=== PATIENT | male | born 1960 | race Caucasian/White ===

== ENCOUNTER → 2016-11-10 | Outpatient (CLI) | payer MEDICAID ==
[~2016-11-10] MED LIST: ASPIRIN 81MG TA81 MG PO; BACLOFEN 10MG T10 MG PO; FENOFIBRATE160 MG PO; JANUVIA100 MG PO; LIPITOR10 MG PO; LORATADINE 10MG10 M1 PO; LORTAB 5/500 501 TAB PO; LORTAB 500 MG-71 TAB PO; METFORMIN HCL1000 MG PO; METFORMIN500 MG PO; METOPROLOL25 MG PO; PERCOGESIC1 TAB PO; PREDNISONE 5MG.5 MG PO; ROBAXIN500 M1 PO; TEMAZEPAM30 MG PO
--- NOTE | 2016-11-11 05:17 | RADIOLOGY REPORT PS360 ---
MRI-L-SPINE W/O, MRI-3D RENDERING/MYELOGRAM HISTORY: Low back pain with bilateral hip and leg pain DEGENERATIVE LUMBAR DISC, LOW BACK PAIN ORDERING PHYSICIAN: Jefferson Polanco MD PATIENT AGE: 56 years COMPARISON: Radiograph of 03/01/2016 TECHNIQUE: Standard multiplanar multiecho sequences are performed without contrast. 3-D MIP and myelographic images are also rendered and reviewed FINDINGS: There is normal alignment. The spinal cord ends at the L1-L2 level. T12-L1: Mild degenerative disc disease. Anterior endplate osteophytes. L1-L2: Mild degenerative disc disease with disc desiccation and small anterior osteophytes. L2-L3: Minimal facet hypertrophic change. L3-L4: Mild facet hypertrophic change with very minimal bulging disc. Small endplate osteophytes. Minimal bilateral foraminal narrowing. L5-S1: Mild facet hypertrophic change. No extruded herniated disc or canal stenosis is evident. IMPRESSION: 1. Mild lumbar spondylosis at multiple levels as detailed at each level above with mild degenerative disc disease, mild facet arthropathy and endplate osteophytes. 2. No canal stenosis or extruded herniated disc. No neural impingement apparent L4-5: Minimal facet hypertrophic change along with minimal bulging disc and mild bilateral foraminal narrowing IMPRESSION:
== END ==
LOC: RAD 12:52
DX: M51.36 Other intervertebral disc degeneration, lumbar region (principal); M54.5 Low back pain; G89.29 Other chronic pain

== ENCOUNTER → 2016-11-25 | Outpatient (CLI) | payer MEDICAID ==
--- NOTE | 2016-11-25 13:42 | RADIOLOGY REPORT PS360 ---
History and Indications: Coronary artery disease, hypertension, diabetes, family history chest pain. Procedure: Patient received a 0.4 mg of Lexiscan, resting heart rate was 79 bpm resting blood pressure 135/85, with Lexiscan maximum heart rate achieved was 107 bpm which is less than 85% of the maximum predicted heart rate and a blood pressure was 131/80. With Lexiscan patient under shortness of breath and headache. Electrocardiogram: Resting electrocardiogram showed sinus rhythm right ventricular conduction delay, with Lexiscan there is less than 1.[address] segment depression noted from the baseline EKG. The EKG portion of the Lexiscan is nondiagnostic. Cardiac stress and resting SPECT images: Cardiac stress and the suspect images were obtained using technetium 99 Myoview 10.2 mCi at rest, and 30.7 mCi at stress, gated SPECT further analysis of segmental wall motion and calculation of the ejection fraction also done. Cardiac stress and the suspect show a mild fixed defect in the apex with normal contractility in the gated SPECT is likely secondary to apical thinning, no reversible ischemia seen. Computer derived ejection fraction is over 65%, right ventricle is normal size and contractility. Conclusion: 1. The EKG portion of the Lexiscan is nondiagnostic. 2. No obvious scintigraphic evidence of reversible ischemia seen. Computer derived ejection fraction is over 65% with no obvious regional wall motion abnormality. Right ventricle is normal size and contractility. 3. Normal Lexiscan Myoview study.
--- NOTE | 2016-11-25 14:38 | RADIOLOGY REPORT PS360 ---
PROCEDURE: 2-D M-mode and color Doppler study INDICATIONS FOR THE TEST: Chest pain+ COPD Heart Murmur Tobacco Smoking Palpitations Fatigue Syncope Edema Hypertension+Diabetes Mellitus+ Rheumatic Fever SOB BONNER Obesity Hyperlipidemia+ Family History HD Additional History PATIENT INFORMATION HEIGHT: 69 WEIGHT:245 GENDER: Male B/P:135/85 2-D/M-MODE INTERPRETATION: 2-D MEASUREMENTS OBSERVED VALUES IN CMS Right Ventricular Dimension (RVDd) 1.8 Interventricular Septum (Thickness)(IVsd) 1.4 Left Ventricular Internal Dimensions(LVIDd) 5.6 Left Ventricular Posterior Wall (Thickness)(LVPWd) 1.0 Aortic Root 3.2 Aortic Cusp Separation 1.9 Left Atrial Dimensions (LAD) 4.7 2D 1. Left atrium is mildly enlarged, left ventricle is normal size, there is mild concentric left ventricular hypertrophy, visually estimated ejection fraction of 55% with no obvious regional wall motion abnormality. 2. The right atrium and right ventricle are normal size and contractility. 3. The aortic valve is minimally thickened and calcified, there is no aortic stenosis. 4. The mitral and tricuspid valve is structurally normal. 5. The pulmonic valve is not well visualized. 6. No significant pericardial effusion noted. DOPPLER INTERROGATION: Doppler interrogation of the aortic mitral and tricuspid valve reveals presence of mild mitral and tricuspid regurgitation, tricuspid regurgitant jet velocity insufficient for calculation of the right ventricular systolic pressure, grade 1 diastolic dysfunction seen without tissue Doppler evidence of raised left atrial pressure. CONCLUSION: 1. Mildly enlarged left atrium, normal left ventricular size, mild concentric left ventricular hypertrophy, visually estimated ejection fraction 55% with no obvious regional wall motion abnormality, grade 1 diastolic dysfunction seen without tissue Doppler evidence of raised left atrial pressure. 2. Mild mitral and tricuspid regurgitation. 3. No significant pericardial effusion noted.
== END ==
LOC: RAD 06:56
DX: I25.10 Atherosclerotic heart disease of native coronary artery without angina pectoris (principal); I20.9 Angina pectoris, unspecified; I10 Essential (primary) hypertension; E11.9 Type 2 diabetes mellitus without complications; E78.5 Hyperlipidemia, unspecified
CPT/HCPCS: A9502; J2785

== ENCOUNTER → 2017-01-04 | Outpatient (CLI) | payer MEDICAID ==
[~2017-01-04] MED LIST changes: +CETIRIZINE HCL10 MG PO; +METOPROLOL SUCC25 M1 PO; +OMEPRAZOLE40 MG PO; +PERCOCET1 TA1 PO; +SUMATRIPTAN SUC25 MG PO; +VENLAFAXINE HCL75 M1 PO; +ZOLPIDEM 10MG T10 MG PO
--- NOTE | 2017-01-05 09:52 | RADIOLOGY REPORT PS360 ---
MRI-T-SPINE W/O HISTORY: MID BACK PAIN ORDERING PHYSICIAN: Pramod Haas MD PATIENT AGE: 56 years COMPARISON: Radiograph of 03/01/2016 TECHNIQUE: Standard multiplanar multiecho sequences are performed without contrast. 3-D MIP and myelographic images are also rendered and reviewed FINDINGS: There is normal alignment. No fracture or dislocation is evident. There is minimal lower thoracic curvature convex right. No disc herniation or canal stenosis. No obvious foraminal stenosis. No extradural defects apparent. Right anterior osteophytes are present from T6 to T12. There is minimal disc desiccation at T6-T7, T7-T8, T9-T10. A small T1 and T2 hyperintense lesion involves the T10 vertebral body consistent with a small hemangioma. IMPRESSION: 1. No acute finding. 2. Mild thoracic spine spondylosis with osteophytosis and mild disc desiccation 3. No canal stenosis or disc herniation
== END ==
LOC: RAD 12:52
DX: M54.5 Low back pain (principal)

== ENCOUNTER → 2017-04-07 | Outpatient (CLI) | payer MEDICAID ==
[~2017-04-07] MED LIST changes: +CIPROFLOXACIN500 MG PO; +FLOMAX 0.4MG C0.4 MG PO
--- NOTE | 2017-04-08 07:03 | RADIOLOGY REPORT PS360 ---
MRI-C-SPINE W/O, MRI-3D RENDERING/MYELOGRAM HISTORY: Neck pain, mid and upper back pain CERVICAL PAIN ORDERING PHYSICIAN: LENKA RUSS CRNA PATIENT AGE: 57 years COMPARISON: Radiograph of 11/15/2008 TECHNIQUE: Standard multiplanar multiecho sequences are performed without contrast. 3-D MIP and myelographic images are also rendered and reviewed FINDINGS: The craniocervical junction has an unremarkable appearance. There is normal alignment. The spinal cord has an unremarkable appearance. C2-C3: Mild left foraminal narrowing from uncovertebral and facet hypertrophy. C3-C4: Mild bilateral lateral recess and foraminal narrowing from vertebral hypertrophy slightly greater on the left compared to the right. C4-C5: Prominent anterior bridging osteophyte C5-C6: Mild degenerative disc disease with small broad-based right paracentral disc osteophyte complex and moderate right lateral recess and foraminal narrowing. There is some mild anterior impingement upon the cord on the right with mild flattening of the cord anteriorly. There is bilateral uncovertebral hypertrophy right greater than left with bilateral foraminal narrowing. Anterior bridging osteophyte. C6-C7: Degenerative disc disease with bulging discs/disc osteophyte complex with canal stenosis of 9 mm. The disc osteophyte complex is somewhat eccentric toward the right with severe right foraminal narrowing and moderate right lateral recess narrowing with mild impingement upon the anterior aspect of the cord. Moderate left foraminal narrowing also noted from uncovertebral and facet hypertrophic change. Prominent anterior osteophyte as well. C7-T1: Unremarkable. IMPRESSION: 1. Cervical spondylosis as described above with degenerative disc disease, bulging disc and disc osteophyte complexes as detailed above. Please see above for detailed description at each level. 2. DISH of the cervical spine. 3. Degenerative disc disease C5-C6 with small broad-based right paracentral disc osteophyte complex and moderate right lateral recess and foraminal narrowing. There is some mild anterior impingement upon the cord on the right with mild flattening of the cord anteriorly. There is bilateral uncovertebral hypertrophy right greater than left with bilateral foraminal narrowing. Mild canal stenosis at 10 mm 4. Degenerative disc disease C6-C7 with bulging discs/disc osteophyte complex with canal stenosis of 9 mm. The disc osteophyte complex is somewhat eccentric toward the right with severe right foraminal narrowing and moderate right lateral recess narrowing with mild impingement upon the anterior aspect of the cord. Moderate left foraminal narrowing also noted from uncovertebral and facet hypertrophic change. IMPRESSION:
== END ==
LOC: RAD 11:52
DX: M54.2 Cervicalgia (principal)

== ENCOUNTER 2017-04-27 09:03 | Day surgery (SDC) | payer MEDICAID ==
--- NOTE | 2017-04-27 11:59 | Operative Note-Urology ---
Procedure/Operative Record Procedure DATE OF PROCEDURE: 04/27/17 PREOPERATIVE DIAGNOSIS: Benign prostatic hypertrophy POSTOPERATIVE DIAGNOSIS: Same PROCEDURE PERFORMED: Flexible cystoscopy SURGEON: Eddie Waller ANESTHESIA: Intraurethral Xylocaine jelly BRIEF HISTORY: Patient has recently seen for long course of chronic prostatitis and obstructive symptoms with nocturia. He was treated with antibiotics and anti-inflammatory as well as tamsulosin. This improved his nocturia from 6-7 times per night to 4 or 5 times per night. All perineal discomfort has resolved. Unfortunately his symptoms have still been been impressive. For cystoscopy to rule out additional pathology. OPERATIVE NOTE: After satisfactory position in the supine orientation the genital area was prepped and draped in standard fashion. Xylocaine jelly was instilled in the urethra and penile clamp placed. Flexible cystoscope was introduced. Pendulous urethra was unremarkable. Bulbous urethra was unremarkable. Prostate revealed some bilateral obstruction minimally RIGHT side greater than LEFT touching briefly but open bladder neck. Left anterior descending itself was coarsely trabeculated. Scope was retroflexed. There were small amount of intravesical prostate tissue but no significant median lobe. Scope was withdrawn. EBL (ml): 0 IMPRESSION: Obstruction with urinary frequency. He will continue tamsulosin. I suggest we try oxybutynin chloride extended release 5 mg additionally. If he fails to significantly improve we will consider urolift. PLAN: As above follow-up 1 month he received 1 dose of Cipro for prophylaxis at [id number]
[2017-04-27 14:10] VITALS: BP 147/92
== END 2017-04-27 10:45 | disposition home or self-care (01) ==
LOC: SDC 09:03
PROVIDERS: Urology
PROC: 0TJB8ZZ Inspection of Bladder, Via Natural or Artificial Opening Endoscopic (ICD-10-PCS; principal; 2017-04-27 10:00)
DX: N40.0 Benign prostatic hyperplasia without lower urinary tract symptoms (principal)

== ENCOUNTER 2017-06-08 15:03 | Day surgery (SDC) | payer MEDICAID ==
[~2017-06-08] VITALS: Ht 175.3 cm; Wt 110.2 kg
[2017-06-08 15:20] VITALS: BP 135/82
[2017-06-08 15:50] VITALS: BP 135/82
[2017-06-08 15:51] VITALS: BP 143/93
[2017-06-08 15:55] VITALS: BP 151/90
--- NOTE | 2017-06-08 15:57 | Procedure Note ---
Procedure detail Date of procedure: 06/08/17 Anesthesiologist: Delonte Bosch Complications: None Pre-procedure diagnosis: Degenerative disc disease lumbar spine multiple levels. Lumbar facet arthropathy. Lumbar spondylosis. Post-procedure diagnosis: Same. Indications for procedure: This patient is a pleasant 56-year-old white male who we are treating for low back pain with lumbar radiculopathy symptoms and lumbar spondylosis. He had radiofrequency ablation to the L3-L4, L4-L5 and L5-S1 facet joints. He did very well for a period of time his pain is now starting to return in the low back. Patient presents for lumbar facet block bilateral L3-4, L4-5, L5-S1. Procedure detail: Informed consent was obtained and the risk and benefits of the procedure was explained to the patient. Patient was taken to the procedure room where noninvasive monitors were placed, including noninvasive blood pressure cuff as well as pulse oximeter. The area over the lumbar spine was cleansed using chlorhexidine as a cleansing solution. I anesthetized the skin and subcutaneous tissues with 1% Lidocaine. I placed 22-gauge spinal needles into the facet joint / medial branches of [L3-L4, L4-L5, and L5-S1] bilaterally. Needle placement was confirmed with fluoroscopy. After confirmation of needle placement, each site was injected with 1 mL of 1% lidocaine and 0.25 % Marcaine and 10 mg of Depo- Medrol. A total of 80 mg of depo medrol was used for bilateral medial branch blocks of [L3-L4, L4-L5, and L5-S1] bilaterally. Patient tolerated the procedure without difficulty. There were no complications. Plan and disposition: Patient was reevaluated 10 minutes post procedure. He reports 90 percent improvement terms of his lumbar back pain in flexion, extension, LEFT and RIGHT rotation. at [id number]
== END 2017-06-08 16:00 | disposition home or self-care (01) ==
LOC: PM 15:03
PROC: 3E0T3BZ Introduction of Anesthetic Agent into Peripheral Nerves and Plexi, Percutaneous Approach (ICD-10-PCS; principal; 2017-06-08)
PROC: 3E0T33Z Introduction of Anti-inflammatory into Peripheral Nerves and Plexi, Percutaneous Approach (ICD-10-PCS; 2017-06-08)
PROC: BR161ZZ Fluoroscopy of Lumbar Facet Joint(s) using Low Osmolar Contrast (ICD-10-PCS; 2017-06-08)
DX: M51.36 Other intervertebral disc degeneration, lumbar region (principal); M12.88 Other specific arthropathies, not elsewhere classified, other specified site; M47.896 Other spondylosis, lumbar region
CPT/HCPCS: J1030